=== PATIENT | male | born 1985 | race African-American/Black ===

== ENCOUNTER 2018-03-28 15:00 | Emergency (ER) | payer SELFPAY ==
[2018-03-28 15:16] VITALS: BP 107/72
--- NOTE | 2018-03-28 15:42 | ER Document Report ---
HPI - HPI Pain Level: 3 Notes: Patient is a 32-year-old male with no significant past medical history who presents to the ED complaining of right thumb pain times a few weeks. Patient states that he works a lot with his hands and notices worsening soreness in that area when he is using his hands. Patient is requesting a work note. Patient states that he has been evaluated by orthopedics in the past and was told that he may have arthritis having in. Denies any other injury. Pain does not radiate. Denies any drug allergies or IV drug use. Denies any headache, fever, neck pain, URI, sore throat, chest pain, palpitations, syncope, cough, shortness of breath, wheeze, dyspnea, abdominal pain, nausea/vomiting/diarrhea, urinary retention, dysuria, hematuria, numbness/tingling, muscle paralysis/ weakness, or rash. - ROS Systems Reviewed and Negative: Yes All other systems reviewed and negative Past Medical History - Social History Smoking Status: Unknown if Ever Smoked Family History: Reviewed & Not Pertinent Vertical Provider Document - CONSTITUTIONAL Agree With Documented VS: Yes Notes: PHYSICAL EXAMINATION: GENERAL: Well-appearing, well-nourished and in no acute distress. LUNGS: Breath sounds clear to auscultation bilaterally and equal. No wheezes rales or rhonchi. HEART: Regular rate and rhythm without murmurs, rubs, gallops. Musculoskeletal: Rt thumb: FROM to passive/active. Strength 5+/5. N/V intact distal. Gamekeeper negative. No tenderness to the hand. Richa negative. Tinel/phalen negative. Extremities: No cyanosis, clubbing, or edema b/l. Peripheral pulses 2+. Capillary refill less than 3 seconds. NEUROLOGICAL: Normal speech, normal gait. Normal sensory, motor exams PSYCH: Normal mood, normal affect. SKIN: Warm, Dry, normal turgor, no rashes or lesions noted. - INFECTION CONTROL TRAVEL OUTSIDE OF THE [place] IN LAST 30 DAYS: No Course - Re-evaluation Re-evalutation: 03/28/18 15:42 Patient is an afebrile, well-hydrated, 32-year-old male who presents to the ED right thumb pain, suspect inflammatory. Vitals are acceptable. PE is otherwise unremarkable for any neurovascular compress, obvious tendon/ligament rupture, obvious fracture/dislocation, septic joint, gamekeeper's thumb. No labs or imaging warranted at this time based on H&P. I suspect that his pain is coming from repetitive motion. Patient does not have adequate health coverage. I will provide patient with a work note. Conservative measures otherwise for symptoms. Recheck with your PCM in 3-5 days. Return to the ED with any worsening/concerning symptoms otherwise as reviewed discharge. Patient is in agreement. - Vital Signs Vital signs: Temp Pulse Resp BP Pulse Ox 99.0 F 76 18 107/72 95 03/28/18 15:15 03/28/18 15:15 03/28/18 15:15 03/28/18 15:15 03/28/18 15:15 Discharge - Discharge Clinical Impression: Pain of right thumb Condition: Stable Disposition: HOME, SELF-CARE Additional Instructions: Rest, Ice, Compression, Elevation Tylenol/ibuprofen as needed Light stretches daily Strength exercises as able Moist heat and massage may help F/u with your PCP in 3-5 days for a recheck Consider consult(s) with Orthopedics/physical therapy for ongoing/worsening symptoms Return to the ED with any worsening symptoms and/or development of fever, headache, chest pain, palpitations, syncope, shortness of breath, trouble breathing, abdominal pain, n/v/d, muscle weakness/paralysis, numbness/tingling, swelling, redness, or other worsening symptoms that are concerning to you. Referrals: [facility] FOR [facility]ERY ([facility]) [Provider Group] - Follow up as needed
== END 2018-03-28 15:55 | disposition home or self-care (01) ==
LOC: ER 15:00
DX: M79.644 Pain in right finger(s) (principal)
CPT/HCPCS: 99283

== ENCOUNTER 2018-04-03 21:16 | Emergency (ER) | payer SELFPAY ==
[2018-04-03 21:29] VITALS: BP 114/60
[2018-04-03] MEDS ORDERED: KETOROLAC TROMETHAMINE 60 MG/2 ML SDV IM ONE (23:06)
--- NOTE | 2018-04-03 23:08 | ER Document Report ---
HPI - HPI Patient complains to provider of: Right thumb pain Onset: Last week Onset/Duration: Persistent Quality of pain: Achy Pain Level: 3 Context: Patient presents complaining of right thumb pain for the past week. Patient states that he does work in which he uses his hands frequently. Patient denies any recent traumatic injury. Patient does state that he has a history of fractured thumb about 10 or 11 years ago in which he never followed up with orthopedics to manage the initial injury. Associated Symptoms: Other - Right thumb pain. denies: Fever Exacerbated by: Movement Relieved by: Denies Similar symptoms previously: No Recently seen / treated by doctor: Yes - ROS ROS below otherwise negative: Yes Systems Reviewed and Negative: Yes All other systems reviewed and negative - CONSTITUTIONAL Constitutional: DENIES: Fever, Chills - NEURO Neurology: DENIES: Weakness - MUSCULOSKELETAL Musculoskeletal: REPORTS: Extremity pain - rt wrist, Swelling - DERM Skin Problems: None Past Medical History - General Information source: Patient - Social History Smoking Status: Current Every Day Smoker Smoking Education Provided: Yes Frequency of alcohol use: Rare Drug Abuse: None Occupation: [employer] Lives with: Family Family History: Reviewed & Not Pertinent Patient has suicidal ideation: No Patient has homicidal ideation: No - Medical History Medical History: Negative Renal/ Medical History: Denies: Hx Peritoneal Dialysis Surgical Hx: Negative Vertical Provider Document - CONSTITUTIONAL Agree With Documented VS: Yes Exam Limitations: No Limitations General Appearance: WD/WN, No Apparent Distress - INFECTION CONTROL TRAVEL OUTSIDE OF THE [place] IN LAST 30 DAYS: No - HEENT HEENT: Atraumatic, Normocephalic - NECK Neck: Normal Inspection - RESPIRATORY Respiratory: No Respiratory Distress - CARDIOVASCULAR Pulses: Normal: Radial - MUSCULOSKELETAL/EXTREMETIES Musculoskeletal/Extremeties: MAEW, FROM, Tender - Patient with right thumb tenderness to CMC joint, 1+ edema, normal skin color and temperature overlying joint, Edema - NEURO Level of Consciousness: Awake, Alert, Appropriate Motor/Sensory: No Motor Deficit - DERM Integumentary: Warm, Dry Course - Re-evaluation Re-evalutation: 04/03/18 23:56 Patient with history of previous fracture to the thumb 10 years ago and states that he never followed up with orthopedics after the initial injury. Patient also reports a history of repetitive activities at his job. Suspect that patient may have a overuse injury in the setting of arthritic joint involving his thumb. No concern for septic arthritis. Patient neurovascularly intact. Patient encouraged to follow-up with orthopedics for any continued pain or problems. 04/04/18 00:25 Patient declines waiting for thumb spica splint to be placed. Patient advised that he can purchase a similar immobilization device [id number]. Patient prefers to do this. - Vital Signs Vital signs: Temp Pulse Resp BP Pulse Ox 98.8 F 62 14 114/60 97 04/03/18 21:28 04/03/18 21:28 04/03/18 21:28 04/03/18 21:28 04/03/18 21:28 - Diagnostic Test Radiology reviewed: Image reviewed, Reports reviewed Discharge - Discharge Clinical Impression: Pain of right thumb, Arthritis, Overuse syndrome Condition: Stable Disposition: HOME, SELF-CARE Instructions: Anti-Inflammatory Medication ([facility]), Arthritis ([facility]), Overuse Syndrome ([facility]) Additional Instructions: Return immediately for any new or worsening symptoms Followup with your primary care provider, call tomorrow to make a followup appointment Wear splint for the next 4 days and then remove. If still having pain follow- up with orthopedics for further evaluation. Prescriptions: Naproxen [Naprosyn 250 Nmg Tablet] 1 tab PO BID #14 tablet Forms: Smoking Cessation Education, Return to Work Referrals: HAIM RAMEY DO [ACTIVE STAFF] - Follow up in 3-5 days
[2018-04-03] MEDS ORDERED: IBUPROFEN 800 MG TABLET PO ONE (23:24)
[2018-04-03] MEDS ORDERED: IBUPROFEN 800 MG TABLET ONE (23:28)
--- NOTE | 2018-04-03 23:34 | RADIOLOGY REPORT (SQ) ---
EXAM DESCRIPTION: XR FINGERS CLINICAL HISTORY: 32 years Male, r thumb pain COMPARISON: None. Findings: Moderate deformity of the right first metacarpal base, 0.3 cm ossicular fragmentation laterally at the right first metacarpal head, 0.2 cm avulsive fragment at the medial aspect of the right first proximal phalangeal base consistent with prior injury. Small osteophyte at the base of the right first distal phalanx. Mild first carpometacarpal osteoarthritis. IMPRESSION: No acute findings. Deformity of the right thumb consistent with chronic injury.
== END 2018-04-04 00:20 | disposition home or self-care (01) ==
LOC: ER 21:16
DX: M79.644 Pain in right finger(s) (principal); M70.841 Other soft tissue disorders related to use, overuse and pressure, right hand; M19.041 Primary osteoarthritis, right hand; F17.200 Nicotine dependence, unspecified, uncomplicated
CPT/HCPCS: 99283